=== PATIENT | female | born 1970 | race Hispanic/Latino ===

== ENCOUNTER 2017-01-16 10:07 | Outpatient (CLI) | payer OTHER ==
--- NOTE | 2017-01-16 11:01 | ULT ---
RIGHT DIAGNOSTIC MAMMOGRAM AND RIGHT BREAST ULTRASOUND: Date: 01/16/17 HISTORY: Abnormal screening mammogram of 01/10/17. FINDINGS: Correlation is made with the mammogram of 01/10/17. No definite mass or mammographic abnormality is seen on the additional views obtained today. Sonographic evaluation of the right outer breast demonstrates a well circumscribed, oval, nonshadowi ng, solid mass at the 10 o'clock position, 6.0 cm from the nipple, measuring 1.2 x 1.7 cm, and a sma ller similar mass measuring 6.0 x 4.0 mm at the 10 o'clock position, 8.0 cm from the nipple. 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 IMPRESSION: BIRADS 3: Probably Benign Finding - Short-Interval Follow-Up Suggested Recommend 6 month follow-up right breast ultrasound. The facility will notify the patient of the need for additional imaging services. POS: [facility]
== END 2017-01-16 10:08 | disposition home or self-care (01) ==
LOC: MAMMO 10:07
PROVIDERS: ATTEND Student in an Organized Health Care Education/Training Program
DX: R92.2 Inconclusive mammogram (principal)
CPT/HCPCS: G0206-RT

== ENCOUNTER 2017-04-16 08:59 | Outpatient (CLI) | payer OTHER ==
[2017-04-16 09:37] LABS: Anion Gap 12 mmol/L (10-20); BUN (Urea Nitrogen) 13 mg/dL (7.0-18.7); Calc. Creatinine Clearance 0 mL/min (70-130); Calcium 9.5 mg/dL (7.8-10.44); Carbon Dioxide 23 mmol/L (22-29); Chloride 105 mmol/L (98-107); Estimated GFR-MDRD Greater than 90
[2017-04-16] MEDS ORDERED: Iopamidol 370 76% 100 ML VIAL ONE (12:01)
--- NOTE | 2017-04-16 14:21 | CT ---
CT ABDOMEN AND PELVIS WITH AND WITHOUT CONTRAST: Technique: Multiple axial tomograms were obtained through the abdomen and pelvis without IV enhanceme nt. Post contrast imaging was performed in a portal venous and delayed venous phase following urograp hic protocol. Multiplanar reconstructions. History: Microhematuria. FINDINGS: Review of the pre-contrast exam reveals no evidence of urinary tract calculus. No evidence of hydrone phrosis. Urinary bladder is mildly distended and unremarkable in appearance. The post contrast images shows symmetric enhancement of both kidneys. No evidence of renal mass lesio n. The delayed study shows contrast excretion into the collecting structures. No filling defect. Liver, spleen, pancreas, and adrenal glands are unremarkable. Small bowel loops are normal in appeara nce. Colon is unremarkable. Appendix appears normal. There is a 3.8 cm cystic mass in the right upper pelvis. There is evidence of hysterectomy. Ovarian c yst would be suspected if ovaries are remaining. No free fluid. IMPRESSION: 1. Urinary tract is unremarkable, as described above. 2. There is a 3.8 to 4.0 cm cystic mass in the upper right pelvis. Patient is post hysterectomy. Ovar christopher etiology would be suspected if ovaries are remaining. Follow up is recommended to confirm resolut ion. This mass may not be adequately evaluated on ultrasound due to its high position in the pelvis a nd overlying bowel loops. Follow up noncontrast CT of pelvis could be performed or MRI of pelvis. POS: [facility]
== END 2017-04-16 09:00 | disposition home or self-care (01) ==
LOC: CT 08:59
PROVIDERS: ATTEND Urology
DX: R10.31 Right lower quadrant pain (principal); R31.29 Other microscopic hematuria
CPT/HCPCS: 36415; 74178; 80048; 88112

== ENCOUNTER 2017-08-08 08:36 | Outpatient (CLI) | payer OTHER | END 2017-08-08 08:37 | disposition home or self-care (01) | LOC: BICULT 08:36 | PROVIDERS: ATTEND Family Medicine | DX: N63.11 Unspecified lump in the right breast, upper outer quadrant (principal) ==

== ENCOUNTER 2018-04-03 09:35 | Outpatient (CLI) | payer OTHER ==
--- NOTE | 2018-04-03 12:04 | ULT ---
LIMITED RIGHT BREAST ULTRASOUND: Date: 04/03/18 PROVIDED CLINICAL HISTORY: Follow-up right breast masses. FINDINGS: Limited sonographic interrogation of the right breast was performed in the 10 o'clock location in the region of prior sonographic concern. Circumscribed foci of diminished echogenicity demonstrating fea tures typical for fibroadenomas are redemonstrated. No evidence for significant interval change. IMPRESSION: BIRADS Category 3 - Probably benign findings. 12 month mammographic and sonographic follow-up recomme nded. POS: OFF
== END 2018-04-03 09:36 | disposition home or self-care (01) ==
LOC: BICMAMMO 09:35
PROVIDERS: ATTEND Student in an Organized Health Care Education/Training Program
DX: N63.11 Unspecified lump in the right breast, upper outer quadrant (principal)
CPT/HCPCS: 77066; G0279

== ENCOUNTER 2018-07-03 10:01 | Outpatient (CLI) | payer OTHER ==
--- NOTE | 2018-07-03 13:44 | RAD ---
CHEST 2 VIEWS: HISTORY: Acute bronchitis with cough. FINDINGS: Heart size is normal. The lungs are clear. IMPRESSION: No acute intrathoracic disease. No evidence for pneumonia. POS: [facility]
== END 2018-07-03 10:02 | disposition home or self-care (01) ==
LOC: BICRAD 10:01
PROVIDERS: ATTEND Family Medicine
DX: J20.9 Acute bronchitis, unspecified (principal)
CPT/HCPCS: 71046

== ENCOUNTER 2019-05-25 10:05 | Outpatient (CLI) | payer OTHER ==
--- NOTE | 2019-05-25 10:54 | MMO ---
Bilateral MAMMO Bilat Diag [facility]+MILIND. CLINICAL HISTORY: Patient is 48 years old and is seen for diagnostic exam. The patient has the following family history of breast cancer: mother, at age 69. The patient has no personal history of cancer. The patient has a history of right Excisional Biopsy in 1999 - benign. VIEWS: The views performed were: bilateral craniocaudal with tomosynthesis; bilateral mediolateral oblique with tomosynthesis; and bilateral mediolateral with tomosynthesis. FILMS COMPARED: The present examination has been compared to prior imaging studies performed at [facility] on 04/03/2018 and 05/25/2019, and at [facility] on 01/10/2017 and 01/16/2017. This study has been interpreted with the assistance of computer-aided detection. MAMMOGRAM FINDINGS: The breasts are heterogeneously dense, which could obscure a lesion on mammography. There are stable focal asymmetries seen in both breasts. There are no suspicious masses, suspicious calcifications, or new areas of architectural distortion. IMPRESSION: THERE IS NO MAMMOGRAPHIC EVIDENCE OF MALIGNANCY. A ROUTINE FOLLOW-UP MAMMOGRAM IN 1 YEAR IS RECOMMENDED. THE RESULTS OF THIS EXAM WERE SENT TO THE PATIENT. ACR BI-RADS Category 2 - Benign finding MAMMOGRAPHY NOTE: 1. A negative mammogram report should not delay a biopsy if a dominant of clinically suspicious mass is present. 2. Approximately 10% to 15% of breast cancers are not detected by mammography. 3. Adenosis and dense breasts may obscure an underlying neoplasm. Reported by: GABRIEL BLOOM MD Electonically Signed: [id number]
--- NOTE | 2019-05-25 12:24 | ULT ---
SONOGRAM RIGHT BREAST: Date: 05/25/2019 HISTORY: Breast mass. Follow-up. COMPARISON: 04/03/2018. FINDINGS: Heterogeneously dense fibroglandular tissue. At the 10 o'clock position, 2 cm from the nipple, a well -circumscribed, oval, slightly heterogeneous hypoechoic mass with posterior acoustic enhancement is 1 .4 cm greatest length x 0.5 cm depth, stable compared to the previous exam. The smaller nodule previo usly described at the 7-8 o'clock position is not visualized on today's exam. No new masses. IMPRESSION: Stable sonographic appearance of the fibroadenoma. BI-RADS Category 2. Benign findings. Suggest routi ne mammographic follow-up. POS: [facility]
== END 2019-05-25 10:06 | disposition home or self-care (01) ==
LOC: BICMAMMO 10:05
PROVIDERS: ATTEND Family Medicine
DX: N63.10 Unspecified lump in the right breast, unspecified quadrant (principal)
CPT/HCPCS: 77066; G0279

== ENCOUNTER 2020-01-22 19:34 | Emergency (ER) | payer OTHER ==
[2020-01-22 20:10] LABS: #Basophils 0.1 thou/uL (0.0-0.2); #Eosinphils 0.1 thou/uL (0.0-0.7); #Monocytes 0.8 thou/uL (0.11-0.59); #Neutrophils 7.3 thou/uL (1.40-6.50); %Basophils 0.8 % (0.0-1.0); %Eosinophils 1.1 % (0.0-10.0); %Lymphocytes 26.1 % (21.0-51.0); %Neutrophils 64.9 % (42.0-75.0); Hemoglobin 14.9 g/dL (12.0-16.0); Mean Corpuscular HGB CONC 33.9 g/dL (32.0-36.0); Mean Corpuscular Hemoglobin 30.7 pg (27.0-31.0); Mean Corpuscular Volume 90.4 fL (78.0-98.0); Mean Platelet Volume 6.6 fL (7.4-10.4); Platelet Count 320 thou/uL (130-400); RBC Distribution Width 12.4 % (11.5-14.5); Red Blood Cell (RBC) Count 4.87 mill/uL (4.20-5.40); White Blood Cell (WBC) Count 11.3 thou/uL (4.8-10.8)
[2020-01-22 20:13] LABS: Bilirubin Negative (Negative); Blood, Urine Negative (Negative); Clarity Clear (Clear); Glucose, Urine (Dipstick) Normal (Negative); Ketone, Urine Negative (Negative); Leukocyte Negative Leu/uL (Negative); Nitrite Negative (Negative); Protein, Urine (Dipstick) Negative (Neg-Trace); Specific Gravity, Urine 1.005 (1.002-1.036); Urobilinogen Normal mg/dL (Less than 2); pH, Urine 5.5 (5.0-9.0)
[2020-01-22 20:31] LABS: ALT (SGPT) 16 U/L (8-55); AST (SGOT) 20 U/L (5-34); Albumin 4.4 g/dL (3.5-5.0); Alkaline Phosphatase 59 U/L (40-110); Anion Gap 14 mmol/L (10-20); BUN (Urea Nitrogen) 10 mg/dL (7.0-18.7); Bilirubin, Total 1.1 mg/dL (0.2-1.2); Calc. Creatinine Clearance 0 mL/min (70-130); Calcium 9.2 mg/dL (7.8-10.44); Carbon Dioxide 25 mmol/L (22-29); Chloride 102 mmol/L (98-107); Estimated GFR-MDRD 76; Glucose 99 mg/dL (70-105); Lipase 33 U/L (8-78); Potassium 3.4 mmol/L (3.5-5.1); Protein, Total 7.4 g/dL (6.0-8.3); Sodium 138 mmol/L (136-145)
--- NOTE | 2020-01-22 22:35 | CT ---
CT ABDOMEN NONCONTRAST CT PELVIS NONCONTRAST: (Urolithiasis protocol) DATE: 01/22/2020 HISTORY: 49-year-old female with right lower quadrant abdominal pain COMPARISON: 04/16/2017 TECHNIQUE: IV injection of iodinated contrast media: None Oral contrast media: None FINDINGS: Other than for urolithiasis, the lack of IV and oral contrast limits the evaluation. There is a new finding of enlargement of the far inferior aspect of the right rectus abdominis muscle with AP dimension of 3.4 cm. This enlargement has craniocaudal dimension of 7 cm. There is surrounding fat stranding in the adjacent peritoneal cavity deep to it. Previously demonstrated 4 cm cystic mass at the right pelvic inlet, is no longer present. No signs of colonic diverticulitis. Clips in gallbladder fossa. Normal appendix. No renal, ureteral, or bladder calculus. No hydronephrosis. Within the limitations of a noncontrast scan, no abnormality identified involving kidneys, pancreas, adrenals, liver, spleen, or urinary bladder. No ascites, pneumoperitoneum, or small bowel dilation. IMPRESSION: 1) spontaneous hematoma of the far inferior aspect of the right rectus abdominis muscle. 2) no urolithiasis or obstructive uropathy.
== END 2020-01-22 23:09 | disposition home or self-care (01) ==
LOC: ERS 19:34
DX: S30.1XXA Contusion of abdominal wall, initial encounter (principal); I10 Essential (primary) hypertension; Z79.899 Other long term (current) drug therapy
CPT/HCPCS: 74176; 80053; 81003; 83690; 85025

== ENCOUNTER 2020-10-25 16:20 | Outpatient (CLI) | payer OTHER | END 2020-10-25 16:21 | disposition home or self-care (01) | LOC: BICRAD 16:20 | PROVIDERS: ATTEND Orthopaedic Surgery Hand Surgery | DX: S62.665A Nondisplaced fracture of distal phalanx of left ring finger, initial encounter for closed fracture (principal) ==

== ENCOUNTER 2022-05-22 12:58 | Outpatient (CLI) | payer BC | END 2022-05-22 12:59 | disposition home or self-care (01) | LOC: BICMAMMO 12:58 | PROVIDERS: ATTEND Family Medicine | DX: Z12.31 Encounter for screening mammogram for malignant neoplasm of breast (principal); Z91.89 Other specified personal risk factors, not elsewhere classified; Z80.3 Family history of malignant neoplasm of breast | CPT/HCPCS: 77063; 77067 ==

== ENCOUNTER 2022-08-26 11:54 | Outpatient (CLI) | payer BC | END 2022-08-26 11:55 | disposition home or self-care (01) | LOC: BICRAD 11:54 | PROVIDERS: ATTEND Family Medicine | DX: M79.672 Pain in left foot (principal); M19.072 Primary osteoarthritis, left ankle and foot ==

== ENCOUNTER 2022-09-05 09:45 | Outpatient (CLI) | payer BC | END 2022-09-05 09:46 | disposition home or self-care (01) | LOC: BICRAD 09:45 | PROVIDERS: ATTEND Family Medicine | DX: J20.9 Acute bronchitis, unspecified (principal) | CPT/HCPCS: 71046 ==

== ENCOUNTER 2023-01-13 16:09 | Outpatient (CLI) | payer BC | END 2023-01-13 16:10 | disposition home or self-care (01) | LOC: BICRAD 16:09 | PROVIDERS: ATTEND Orthopaedic Surgery Hand Surgery | DX: S82.201A Unspecified fracture of shaft of right tibia, initial encounter for closed fracture (principal) ==

== ENCOUNTER 2023-02-07 09:33 | Outpatient (CLI) | payer BC | END 2023-02-07 09:34 | disposition home or self-care (01) | LOC: ULT 09:33 | PROVIDERS: ATTEND Family Medicine | DX: R10.84 Generalized abdominal pain (principal); K76.0 Fatty (change of) liver, not elsewhere classified; R16.0 Hepatomegaly, not elsewhere classified; Z90.49 Acquired absence of other specified parts of digestive tract | CPT/HCPCS: 76700 ==

== ENCOUNTER 2023-05-20 10:20 | Outpatient (CLI) | payer BC | END 2023-05-20 10:21 | disposition home or self-care (01) | LOC: BICRAD 10:20 | PROVIDERS: ATTEND Family Medicine | DX: M17.12 Unilateral primary osteoarthritis, left knee (principal) ==

== ENCOUNTER 2023-05-30 10:34 | Outpatient (CLI) | payer BC | END 2023-05-30 10:35 | disposition home or self-care (01) | LOC: BICMRI 10:34 | PROVIDERS: ATTEND Orthopaedic Surgery | DX: M23.92 Unspecified internal derangement of left knee (principal); M17.12 Unilateral primary osteoarthritis, left knee; S83.242A Other tear of medial meniscus, current injury, left knee, initial encounter; S83.012A Lateral subluxation of left patella, initial encounter; R60.0 Localized edema ==

== ENCOUNTER 2023-06-19 15:51 | Outpatient (CLI) | payer BC ==
[2023-06-19 16:50] LABS: SARS-CoV-2 NAA Rapid Test DETECTED (NotDetected)
[2023-06-19 16:51] LABS: #Basophils 0.1 10x3/uL (0.0-0.2); #Eosinphils 0.4 10x3/uL (0.0-0.5); #Monocytes 0.8 10x3/uL (0.0-1.1); #Neutrophils 4.5 10x3/uL (1.5-8.4); %Basophils 0.6 % (0.0-2.0); %Lymphocytes 26.4 % (18.0-47.0); %Monocytes 9.6 % (0.0-10.0); %Neutrophils 57.9 % (40.0-75.0); Hematocrit 39.8 % (34.9-44.5); Hemoglobin 13.8 g/dL (12.0-15.5); Mean Corpuscular HGB CONC 34.7 g/dL (32.0-36.0); Mean Corpuscular Hemoglobin 29.7 pg (27.0-33.0); Mean Corpuscular Volume 85.6 fl (81.6-98.3); Mean Platelet Volume 9.4 fl (7.4-10.4); Platelet Count 266 10x3/uL (150-450); RBC Distribution Width 13.5 % (11.5-14.5); Red Blood Cell (RBC) Count 4.65 10x6/uL (3.90-5.03); White Blood Cell (WBC) Count 7.8 10x3/uL (3.5-10.5)
[2023-06-19 16:59] LABS: Anion Gap 14 mmol/L (10-20); BUN (Urea Nitrogen) 12 mg/dL (9.8-20.1); Calc. Creatinine Clearance 0 mL/min (70-130); Calcium 8.9 mg/dL (7.8-10.44); Carbon Dioxide 27 mmol/L (22-29); Chloride 105 mmol/L (98-107); Estimated GFR 91; Glucose 123 mg/dL (70-105); Potassium 3.6 mmol/L (3.5-5.1); Sodium 142 mmol/L (136-145)
== END 2023-06-19 15:52 | disposition home or self-care (01) ==
LOC: LABBT 15:51
PROVIDERS: ATTEND Orthopaedic Surgery
DX: Z01.818 Encounter for other preprocedural examination (principal); M23.92 Unspecified internal derangement of left knee
CPT/HCPCS: 80048; 85025; 93005; 93010; U0002